=== PATIENT | female | born 1970 ===

== ENCOUNTER 2017-06-05 11:22 | Emergency (ER) | payer BC ==
[2017-06-05 12:24] VITALS: BP 138/81
[2017-06-05] MEDS ORDERED: Ibuprofen TAB* 600 MG PO ONE (12:37)
--- NOTE | 2017-06-05 12:37 | UC ---
Respiratory Complaint HPI - HPI Summary HPI Summary: 4 days of denice now has cough st, body aches chills, head ache,sinus pain and subjective fever-also some nausea - History of Current Complaint Chief Complaint: UCRespiratory Stated Complaint: ST,COUGH,MAXIM Time Seen by Provider: 06/05/17 12:17 Hx Obtained From: Patient Hx Last Menstrual Period: ~05/14/17 ?: No Onset/Duration: Sudden Onset, Lasting Days - 4, Still Present, Worse Since - today Timing: Constant Severity Initially: Mild Severity Currently: Moderate Character: Cough: Nonproductive Aggravating Factors: Nothing Alleviating Factors: OTC Meds Associated Signs And Symptoms: Positive: Chills, URI, Nasal Congestion - Allergies/Home Medications Allergies/Adverse Reactions: Allergies Allergy/AdvReac Type Severity Reaction Status Date / Time Clarithromycin [From Biaxin] Allergy Rash Verified 06/05/17 12:18 Codeine Allergy Mirgaine Verified 06/05/17 12:18 and Vomiting Midazolam [From Versed] Allergy Mirgaine Verified 06/05/17 12:18 and Vomiting Morphine Allergy Mirgaine Verified 06/05/17 12:18 and Vomiting Penicillins Allergy Unknown Verified 06/05/17 12:18 Reaction Details Pseudoephedrine Allergy Epistaxis Verified 06/05/17 12:18 [From Sudafed] Anesthetic with Preservatives Allergy Anaphylatic Uncoded 06/05/17 12:18 Shock Control Pills Allergy Hypertension Uncoded 06/05/17 12:18 and Chest Pain Home Medications: Home Medications Cyclobenzaprine TAB* [Flexeril 10 MG TAB*] 2.5 mg PO TID PRN 06/05/17 [History Confirmed 06/05/17] Ibuprofen TAB* [Advil TAB*] 600 mg PO Q6H PRN 06/05/17 [History Confirmed ] Ondansetron ODT TAB* [Zofran 4 MG Odt TAB*] 4 mg PO Q6H PRN 06/05/17 [History Confirmed 06/05/17] Sumatriptan-Naproxen Sodium [Treximet] 1 tab PO SEE INSTRUCTIONS PRN 06/05/17 [ History Confirmed 06/05/17] PMH/Surg Hx/FS Hx/Imm Hx Previously Healthy: No - "Lupus" Neurological History: Migraine - Surgical History Surgical History: Yes Surgery Procedure, Year, and Place: Endometriosis, Gastric Adenoma, Appendectomy , Tonsillectomy, Leg Lipoma - Family History Known Family History: Positive: None - Social History Occupation: Employed Full-time Lives: With Family Alcohol Use: Rare Substance Use Type: None Smoking Status (MU): Never Smoked Tobacco - Immunization History Most Recent Influenza Vaccination: February 2017 Review of Systems Constitutional: Negative, Chills, Fatigue Skin: Negative Eyes: Negative ENT: Sore Throat, Ear Ache, Nasal Discharge, Sinus Congestion, Sinus Pain/ Tenderness Respiratory: Cough Cardiovascular: Negative Gastrointestinal: Nausea Genitourinary: Negative Motor: Negative Neurovascular: Negative Musculoskeletal: Arthralgia, Myalgia Neurological: Headache Psychological: Negative Is Patient Immunocompromised?: No All Other Systems Reviewed And Are Negative: Yes Physical Exam Triage Information Reviewed: Yes Appearance: Well-Nourished, Ill-Appearing - moderate, Pain Distress - mild Vital Signs: Initial Vital Signs Temp 98.2 F 06/05/17 12:13 Pulse 83 06/05/17 12:13 Resp 18 06/05/17 12:13 BP 138/81 06/05/17 12:13 Pulse Ox 100 06/05/17 12:13 Vital Signs Reviewed: Yes Eye Exam: Normal Eyes: Positive: Conjunctiva Clear ENT Exam: Normal ENT: Positive: Normal ENT inspection, Hearing grossly normal, Pharynx normal, Nasal congestion, Nasal drainage, Sinus tenderness, Uvula midline. Negative: Tonsillar swelling, Tonsillar exudate, Hoarse voice, Dental tenderness Dental Exam: Normal Neck exam: Normal Neck: Positive: Supple, Nontender, No Lymphadenopathy Respiratory Exam: Normal Respiratory: Positive: Chest non-tender, Lungs clear, Normal breath sounds, No respiratory distress, No accessory muscle use Cardiovascular Exam: Normal Cardiovascular: Positive: RRR, No Murmur, Pulses Normal, Brisk Capillary Refill Abdominal Exam: Normal Abdomen Description: Positive: Nontender, No Organomegaly, Soft Musculoskeletal Exam: Normal Musculoskeletal: Positive: Strength Intact, ROM Intact, No Edema Neurological Exam: Normal Neurological: Positive: Alert, Muscle Tone Normal Psychological Exam: Normal Skin Exam: Normal UC Diagnostic Evaluation - Laboratory O2 Sat by Pulse Oximetry: 100 Diagnostic Studies Comment: RST (-), Rapid Flu (-) Respiratory Course/Dx - Course Course Of Treatment: Augmentin, nasal spray, ibuprofen, tessalon rest increase fluids follow with pcp - Differential Dx/Diagnosis Provider Diagnoses: Acute rhinosinusitis Discharge - Discharge Plan Condition: Stable Disposition: HOME Prescriptions: Azithromycin TAB* [Zithromax TAB (Z-NICO) 250 mg #6 tabs] 2 tab PO .TODAY, THEN 1 DAILY #1 nico Benzonatate CAP* [Tessalon 100 MG CAP*] 100 mg PO TID #30 cap Fluticasone NASAL SPRAY 50MCG* [Flonase NASAL SPRAY 50MCG*] 2 spray BOTH NARES DAILY #1 btl Patient Education Materials: How to Use Nasal [place] (ED), Sinusitis (ED) Forms: *Work Release Referrals: [facility] [place] [facility] [Outside] - If Needed
== END 2017-06-05 13:00 | disposition home or self-care (01) ==
LOC: UCCORT 11:22
DX: J01.90 Acute sinusitis, unspecified (principal); Z88.4 Allergy status to anesthetic agent; Z88.3 Allergy status to other anti-infective agents; Z88.5 Allergy status to narcotic agent; Z88.0 Allergy status to penicillin; G43.909 Migraine, unspecified, not intractable, without status migrainosus
CPT/HCPCS: 87502; 87651; 99202; A9270-GY; G0463

== ENCOUNTER 2017-10-28 15:00 | Emergency (ER) | payer BC ==
[2017-10-28 17:01] VITALS: BP 128/71
--- NOTE | 2017-10-29 15:52 | UC ---
Throat Pain/Nasal Edy HPI - HPI Summary HPI Summary: Patient is a 47-year-old female who presents to the urgent care with complaints of sore throat, nasal congestion, ear infection, fatigue 2 days. Patient's daughter who was also present in a similar symptoms. Past medical history of lupus, is not currently being treated. Patient states she has a history of recurrent strep throat infections as well. She denies productive cough, chest pain, shortness of breath, abdominal pain, vomiting, diarrhea, urinary symptoms. Symptoms are mild in severity. No current modifying factors. - History of Current Complaint Chief Complaint: UCGeneralIllness Stated Complaint: SORE THROAT/NAUSEA Time Seen by Provider: 10/28/17 16:50 Hx Obtained From: Patient Hx Last Menstrual Period: ~05/14/17 Pain Intensity: 5 Pain Scale Used: 0-10 Numeric - Allergies/Home Medications Allergies/Adverse Reactions: Allergies Allergy/AdvReac Type Severity Reaction Status Date / Time clarithromycin [From Biaxin] Allergy Rash Verified 10/28/17 17:08 codeine Allergy Vomiting Verified 10/28/17 17:08 midazolam [From Versed] Allergy Vomiting Verified 10/28/17 17:08 morphine Allergy Vomiting Verified 10/28/17 17:08 Penicillins Allergy Unknown Verified 10/28/17 17:08 Reaction Details pseudoephedrine Allergy See Comment Verified 10/28/17 17:08 [From Sudafed] anesthesia w/ preservative Allergy Anaphylatic Uncoded 10/28/17 17:08 Shock control pill Allergy See Comment Uncoded 10/28/17 17:08 PMH/Surg Hx/FS Hx/Imm Hx Previously Healthy: Yes - Surgical History Surgical History: Yes Surgery Procedure, Year, and Place: Endometriosis, Gastric Adenoma, Appendectomy , Tonsillectomy, Leg Lipoma - Family History Known Family History: Positive: None - Social History Alcohol Use: Rare Substance Use Type: None Smoking Status (MU): Never Smoked Tobacco - Immunization History Most Recent Influenza Vaccination: February 2017 Review of Systems Constitutional: Negative Skin: Negative Eyes: Negative ENT: Sore Throat, Ear Ache, Sinus Congestion Respiratory: Negative Cardiovascular: Negative Gastrointestinal: Negative Genitourinary: Negative Motor: Negative Neurovascular: Negative Musculoskeletal: Negative Neurological: Negative Is Patient Immunocompromised?: No All Other Systems Reviewed And Are Negative: Yes Physical Exam Triage Information Reviewed: Yes Appearance: Well-Appearing - Patient sitting in chair in no acute distress. Appears to felt tired but nontoxic. Daughter present. Vital Signs: Initial Vital Signs Temp 99.0 F 10/28/17 16:59 Pulse 89 10/28/17 16:59 Resp 14 10/28/17 16:59 BP 128/71 10/28/17 16:59 Pulse Ox 98 10/28/17 16:59 Vital Signs Reviewed: Yes Eye Exam: Normal Eyes: Positive: Conjunctiva Clear ENT: Positive: Pharyngeal erythema, TM dull, Tonsillar swelling, Uvula midline. Negative: Tonsillar exudate, Trismus, Muffled voice, Hoarse voice Neck exam: Normal Neck: Positive: Supple. Negative: Nuchal Rigidity Respiratory: Positive: Lungs clear, Normal breath sounds Cardiovascular: Positive: RRR, No Murmur Musculoskeletal Exam: Normal Neurological Exam: Normal Psychological Exam: Normal Skin Exam: Normal Throat Pain/Nasal Course/Dx - Course Course Of Treatment: Patient presenting for the above complaints. She is afebrile with stable vital signs. Rapid strep test is negative. Suspect viral etiology. Results were discussed with patient. She feels her symptoms are most likely secondary to bacterial infection however she would like to see if her symptoms improve. Patient states she feels infection will go to her chest. She declines any further testing today. She would like to follow up with her family doctor. Advised increased fluids and rest. Tylenol or Motrin for pain as directed. To return to urgent care or go to the ER symptoms change or worsen. - Differential Dx/Diagnosis Differential Diagnosis/HQI/PQRI: Influenza, Laryngitis, Otitis Media, Peritonsillar Abscess, Pharyngitis, Sinusitis, Tonsillitis, URI Provider Diagnoses: URI Discharge - Sign-Out/Discharge Documenting (check all that apply): Discharge/Admit/Transfer - Discharge Plan Condition: Good Disposition: HOME Patient Education Materials: Upper Respiratory Infection (ED) Referrals: Alize Sheets MD [Primary Care Provider] - Additional Instructions: Follow up with your PCP Increase fluids and rest Tylenol or Motrin for discomfort as directed Return to or go to ER if symptoms change or worsen - Billing Disposition and Condition Condition: GOOD Disposition: HOME
== END 2017-10-28 17:52 | disposition home or self-care (01) ==
LOC: UCCORT 15:00
DX: J06.9 Acute upper respiratory infection, unspecified (principal); Z88.5 Allergy status to narcotic agent; Z88.0 Allergy status to penicillin; Z88.8 Allergy status to other drugs, medicaments and biological substances; Z88.4 Allergy status to anesthetic agent; Z88.1 Allergy status to other antibiotic agents
CPT/HCPCS: 87651; 99211; G0463